=== PATIENT | female | born 1975 | race Caucasian/White ===

== ENCOUNTER 2021-03-21 00:16 | Inpatient (IN) | payer OTHER ==
[~2021-03-21] VITALS: Ht 162.6 cm; Wt 66.3 kg
[2021-03-21] VITALS (10 sets, daily range): BP systolic 116–160; BP diastolic 70–82
[2021-03-21] MEDS ORDERED: FAMOTIDINE INJ 20MG/2ML VIAL (S0028 PER 1) IVP ONE (00:35)
[2021-03-21] MEDS ORDERED: ONDANSETRON 4MG/2ML VIAL IV ONE (00:35)
[2021-03-21] MEDS ORDERED: MORPHINE 4 MG/ML 1ML VIAL/SYRINGE (J2270) IV ONE ×2 (00:40→05:05)
[2021-03-21] MEDS ORDERED: LR 1,000 ML IV ONE ×2 (00:40→03:30)
[2021-03-21 00:56] LABS: BASO # 0.1 10^3/uL (0.0-0.2); BASO % 0.3 % (0.0-1.0); EOS # 0.1 10^3/uL (0.0-0.5); EOS % 0.4 % (0.0-3.0); HEMATOCRIT 46.7 % (36.0-47.0); HEMOGLOBIN 14.8 g/dl (12.0-15.5); LYMPH # 1.8 10^3/uL (1.5-5.0); LYMPH % 6.4 % (24.0-44.0); MEAN CORPUSCULAR HEMOGLOBIN 29.1 pg (27.0-33.0); MEAN CORPUSCULAR HGB CONC 31.7 g/dl (32.0-36.5); MEAN CORPUSCULAR VOLUME 91.9 fl (80.0-96.0); MONO # 0.9 10^3/uL (0.0-0.8); MONO % 3.4 % (2.0-8.0); NEUTROPHILS # 24.2 10^3/uL (1.5-8.5); NEUTROPHILS % 88.9 % (36.0-66.0); PLATELET COUNT, AUTOMATED 464 10^3/uL (150-450); RED BLOOD COUNT 5.08 10^6/uL (4.00-5.40); WHITE BLOOD COUNT 27.2 10^3/uL (4.0-10.0)
[2021-03-21] MEDS: GASTROGRAFIN SOLUTION 30ML PO SCH ×2 (01:24→01:45)
[2021-03-21 01:25] LABS: ALBUMIN 3.2 GM/DL (3.2-5.2); ALT/SGPT 15 U/L (12-78); BILIRUBIN,DIRECT < 0.1 MG/DL (0.0-0.2); BILIRUBIN,TOTAL 0.2 MG/DL (0.2-1.0); BLOOD UREA NITROGEN 12 MG/DL (7-18); CALCIUM LEVEL 9.3 MG/DL (8.5-10.1); CARBON DIOXIDE LEVEL 25 MEQ/L (21-32); CHLORIDE LEVEL 106 MEQ/L (98-107); CREATININE FOR GFR 0.65 MG/DL (0.55-1.30); GLOMERULAR FILTRATION RATE > 60.0 (>58); GLUCOSE, FASTING 129 MG/DL (70-100); LIPASE 195 U/L (73-393); SODIUM LEVEL 138 MEQ/L (136-145); TOTAL PROTEIN 6.5 GM/DL (6.4-8.2)
[2021-03-21] MEDS ORDERED: ISOVUE-370 76% 100ML VIAL As Ordered ONE (02:25)
--- NOTE | 2021-03-21 02:32 | REPVR ---
PROCEDURE INFORMATION: Exam: XR Abdomen Exam date and time: 03/21/2021 1:41 AM Age: 45 years old Clinical indication: Other: Examine gas pattern TECHNIQUE: Imaging protocol: XR of the abdomen. Views: Frontal supine view of the abdomen. 1 View. COMPARISON: No relevant prior studies available. FINDINGS: Gastrointestinal tract: Nonspecific nonobstructive bowel gas pattern. Intraperitoneal space: Surgical clips project in paraspinal right upper quadrant. Bones/joints: Degenerative changes in the bilateral sacroiliac joints. IMPRESSION: Nonspecific nonobstructive bowel gas pattern. Electronically signed by: Jose Rafael Jimenez On 03/21/2021 02:32:21 AM
[2021-03-21] MEDS ORDERED: VANCOMYCIN HCL 1,000 MG, VIAL MATE ADAPTER 1 EACH in NS 250 ML IV SCH (03:25)
[2021-03-21] MEDS ORDERED: PIPERACILLIN/TAZOBACTAM SOD 4.5 GM in D5W MINI-BAG PLUS 50 ML IV ONE (03:25)
--- NOTE | 2021-03-21 03:30 | REPVR ---
PROCEDURE INFORMATION: Exam: CT Abdomen And Pelvis With Contrast Exam date and time: 03/21/2021 2:50 AM Age: 45 years old Clinical indication: Abdominal pain; Localized; Right lower quadrant (rlq); Additional info: R/O obstruction/rlq pain vomting TECHNIQUE: Imaging protocol: Computed tomography of the abdomen and pelvis with contrast. Radiation optimization: All CT scans at this facility use at least one of these dose optimization techniques: automated exposure control; mA and/or kV adjustment per patient size (includes targeted exams where dose is matched to clinical indication); or iterative reconstruction. Contrast material: ISOVUE 370; Contrast volume: 100 ml; Contrast route: INTRAVENOUS (IV); COMPARISON: CR Abdomen,Flat Plate KUB 03/21/2021 1:24 AM FINDINGS: Lungs: Atelectasis or scarring in the right middle lobe. Linear atelectasis or scarring in the right middle lobe. Liver: Hepatomegaly and steatosis. Gallbladder and bile ducts: Status post cholecystectomy. Pancreas: Normal. No ductal dilation. Spleen: Normal. No splenomegaly. Adrenal glands: Indeterminate 3 x 2 cm left adrenal nodule. Kidneys and ureters: Normal. No hydronephrosis. Stomach and bowel: Status post partial small bowel resection. Perforated duodenal ulcer with sang pneumoperitoneum and oral contrast leak best appreciated on coronal image number 81. Appendix: Status post appendectomy. Intraperitoneal space: See above. Vasculature: Unremarkable. No abdominal aortic aneurysm. Lymph nodes: Unremarkable. No enlarged lymph nodes. Urinary bladder: Unremarkable as visualized. Reproductive: Status post hysterectomy. Status post right oophorectomy. Multiple simple appearing left adnexal cysts can be further assessed pelvic ultrasound clinically warranted. Bones/joints: Loss normal lumbar lordosis. Soft tissues: Unremarkable. IMPRESSION: Perforated duodenal ulcer with sang pneumoperitoneum and oral contrast leak best appreciated on coronal image number 81. Electronically signed by: Jose Rafael Jimenez On 03/21/2021 03:30:28 AM
[2021-03-21] MEDS ORDERED: VANCOMYCIN HCL 1,000 MG, VIAL MATE ADAPTER 1 EACH in NS 250 ML IV ONE (03:40)
[2021-03-21] MEDS ORDERED: fentaNYL 100 MCG/2 ML INJECTION (J3010) IV ONE (03:50)
[2021-03-21] MEDS ORDERED: MORPHINE 2 MG/ML 1ML VIAL (J2270) IV ONE (05:05)
[2021-03-21] MEDS ORDERED: propofoL 200 MG/20 ML VIAL As Ordered ONE (05:20)
[2021-03-21] MEDS ORDERED: LIDOCAINE 2% 100MG/5ML SDV (FOR ANES.) As Ordered ONE (05:20)
[2021-03-21] MEDS ORDERED: ROCURONIUM BROMIDE 50 MG/5 ML VIAL As Ordered ONE (05:20)
[2021-03-21] MEDS ORDERED: fentaNYL 250 MCG/5 ML INJECTION (J3010) As Ordered ONE (05:20)
[2021-03-21] MEDS ORDERED: MIDAZOLAM INJ 2MG/2ML VIAL (J2250 PER 1MG) As Ordered ONE (05:21)
[2021-03-21] MEDS ORDERED: NORE5TAB PO (05:23)
[2021-03-21] MEDS ORDERED: BLOOD PRESSURE MED (05:27)
[2021-03-21] MEDS ORDERED: SUCCINYLCHOLINE 100 MG/5 ML SYRINGE (J0330) As Ordered ONE (05:47)
[2021-03-21] MEDS ORDERED: BUPIVACAINE HCL 0.25% 10ML VIAL As Ordered ONE (06:05)
[2021-03-21] MEDS ORDERED: BUPIVACAINE LIPOSOME/PF 1.3% 20ML VIAL (13.3MG/ML)(EXPAREL)(C9290 PER1MG) As Ordered ONE (06:06)
[2021-03-21] MEDS ORDERED: GLUCAGON INJ 1MG VIAL As Ordered ONE (06:06)
[2021-03-21] MEDS ORDERED: PHENYLephrine 500MCG 5ML (100MCG/ML) SYRINGE As Ordered ONE (06:19)
[2021-03-21] MEDS ORDERED: ACETAMINOPHEN 1000MG 100ML IV BTL (OFIRMEV) (J0131 PER 10MG) As Ordered ONE (06:19)
[2021-03-21] MEDS ORDERED: HYDROmorphone HCL 2 MG/ML 1ML VIAL (J1170) As Ordered ONE (06:24)
[2021-03-21] MEDS ORDERED: SUGAMMADEX SODIUM 500 MG/5 ML VIAL (BRIDION) As Ordered ONE (06:26)
[2021-03-21] MEDS ORDERED: ONDANSETRON 4MG/2ML VIAL IV PRN ×2 (06:45→07:00)
[2021-03-21] MEDS ORDERED: MORPHINE 4 MG/ML 1ML VIAL/SYRINGE (J2270) IV PRN (06:45)
[2021-03-21] MEDS ORDERED: fentaNYL 100 MCG/2 ML INJECTION (J3010) IV PRN (07:00)
[2021-03-21] MEDS ORDERED: HYDROMORPHONE HCL 0.5 MG/ 0.5 ML SYRINGE (J1170 PER 1) IV PRN (07:00)
[2021-03-21] MEDS ORDERED: oxyCODONE 5MG TAB PO PRN (07:00)
[2021-03-21] MEDS ORDERED: LR 1,000 ML IV SCH (07:00)
[2021-03-21] MEDS ORDERED: LEVALBUTEROL 1.25 MG/0.5 ML CONCENTRATE NEB As Ordered ONE (08:17)
[2021-03-21] MEDS ORDERED: LEVALBUTEROL 1.25 MG/0.5 ML CONCENTRATE NEB NEB ONE (08:20)
[2021-03-21] MEDS: NS 1,000 ML IV SCH ×3 (09:58→22:46)
[2021-03-21] MEDS: KETOROLAC 30 MG/ML 1ML VIAL IV SCH ×3 (09:58→20:39)
[2021-03-21] MEDS: PANTOPRAZOLE 40MG VIAL (C9113 PER 1) IV SCH ×2 (09:58→20:39)
[2021-03-21] MEDS: AMPICILLIN SOD/SULBACTAM SOD 3 GM in D5W MINI-BAG PLUS 100 ML IV SCH ×3 (12:11→22:45)
[2021-03-21] MEDS: MORPHINE 4 MG/ML 1ML VIAL/SYRINGE (J2270) IV PRN ×2 (12:55→18:13)
[2021-03-21] MEDS ORDERED: IPRATROPIUM 0.5MG/ALBUTEROL 2.5MG INH SOL UD 3ML (DUONEB) NEB PRN (15:10)
[2021-03-21] MEDS: IPRATROPIUM 0.5MG/ALBUTEROL 2.5MG INH SOL UD 3ML (DUONEB) NEB SCH (18:16)
[2021-03-22] MEDS: KETOROLAC 30 MG/ML 1ML VIAL IV SCH ×4 (01:30→20:30)
[2021-03-22] MEDS: IPRATROPIUM 0.5MG/ALBUTEROL 2.5MG INH SOL UD 3ML (DUONEB) NEB SCH ×4 (01:36→19:36)
[2021-03-22 02:00] VITALS: BP 136/80
[2021-03-22] MEDS: AMPICILLIN SOD/SULBACTAM SOD 3 GM in D5W MINI-BAG PLUS 100 ML IV SCH ×4 (04:09→23:21)
[2021-03-22] MEDS: MORPHINE 4 MG/ML 1ML VIAL/SYRINGE (J2270) IV PRN ×3 (04:16→18:07)
[2021-03-22 06:00] VITALS: BP 136/81
[2021-03-22] MEDS: NS 1,000 ML IV SCH ×3 (06:39→23:21)
[2021-03-22] MEDS: PANTOPRAZOLE 40MG VIAL (C9113 PER 1) IV SCH ×2 (08:29→20:30)
--- NOTE | 2021-03-22 11:10 | IPNPDOC ---
Text Note Date of Service The patient was seen on 03/22/21. NOTE Gen. surgery. Dr. Forte The patient is a 45-year-old female status post laparotomy with repair of perforated small bowel ulcer as per Dr. Forte 03/21/21. This morning, the patient is out of bed and sitting in the chair. She reports pain is controlled. She has some mild incisional pain. She states her low back is bothering her from lying in the bed flat for so long, she would like to apply some heat. Otherwise, she reports no nausea, vomiting. Reports flatus, no BM. NPO. Afebrile. Blood pressure 136/81, heart rate 111, respiratory rate 16, 93% 1 L nasal cannula. General. Out of bed to chair, appears comfortable. Lungs clear to auscultation S1-S2 regular rate and rhythm Abdomen with midline dressing clean/dry/intact. Soft, mild tenderness around incision site. No guarding or rebound. Extremities with no edema. No new labs this morning. Assessment/plan Status post laparotomy with repair of perforated small bowel ulcer as per Dr. Forte 03/21/21. Continue NPO IVF 125cc/hr IV Unasyn. Plan for labs in AM. VS,Fishbone, I+O VS, Fishbone, I+O Vital Signs Date Time Temp Pulse Resp B/P (MAP) Pulse Ox O2 Delivery O2 Flow Rate FiO2 03/22/21 06:00 98.7 111 16 136/81 (99) 93 Nasal Cannula 1.0 I&O- Last 24 Hours up to 6 AM 03/22/21 05:59 Intake Total 1700 ml Output Total 1300 ml Balance 400 ml Liz Roman March 22, 2021 11:09
[2021-03-22 14:00] VITALS: BP 150/88
[2021-03-22 22:00] VITALS: BP 152/79
[2021-03-23] MEDS ORDERED: diphenhydrAMINE 25MG CAP PO PRN (00:10)
[2021-03-23 02:00] VITALS: BP 146/60
[2021-03-23] MEDS: KETOROLAC 30 MG/ML 1ML VIAL IV SCH ×4 (02:03→19:58)
[2021-03-23] MEDS: IPRATROPIUM 0.5MG/ALBUTEROL 2.5MG INH SOL UD 3ML (DUONEB) NEB SCH ×4 (02:31→19:12)
[2021-03-23 04:00] VITALS: BP 146/60
[2021-03-23] MEDS: AMPICILLIN SOD/SULBACTAM SOD 3 GM in D5W MINI-BAG PLUS 100 ML IV SCH ×4 (04:12→22:59)
[2021-03-23 06:00] VITALS: BP 166/81
[2021-03-23 06:04] LABS: HEMATOCRIT 34.7 % (36.0-47.0); HEMOGLOBIN 10.9 g/dl (12.0-15.5); MEAN CORPUSCULAR HEMOGLOBIN 28.8 pg (27.0-33.0); MEAN CORPUSCULAR HGB CONC 31.4 g/dl (32.0-36.5); MEAN CORPUSCULAR VOLUME 91.6 fl (80.0-96.0); PLATELET COUNT, AUTOMATED 256 10^3/uL (150-450); RED BLOOD COUNT 3.79 10^6/uL (4.00-5.40); WHITE BLOOD COUNT 9.1 10^3/uL (4.0-10.0)
[2021-03-23 06:32] LABS: BLOOD UREA NITROGEN 3 MG/DL (7-18); CALCIUM LEVEL 7.6 MG/DL (8.5-10.1); CARBON DIOXIDE LEVEL 22 MEQ/L (21-32); CHLORIDE LEVEL 111 MEQ/L (98-107); CREATININE FOR GFR 0.26 MG/DL (0.55-1.30); GLOMERULAR FILTRATION RATE > 60.0 (>58); GLUCOSE, FASTING 85 MG/DL (70-100); POTASSIUM SERUM 3.4 MEQ/L (3.5-5.1); SODIUM LEVEL 141 MEQ/L (136-145)
[2021-03-23] MEDS: PANTOPRAZOLE 40MG VIAL (C9113 PER 1) IV SCH ×2 (09:05→20:00)
[2021-03-23 10:00] VITALS: BP 156/82
[2021-03-23] MEDS: NS 1,000 ML IV SCH (10:01)
[2021-03-23 14:00] VITALS: BP 158/86
[2021-03-23] MEDS ORDERED: NORCO, ANEXSIA 5/325MG TABLET (HYDROcodone/ACETAMINOPHEN) PO PRN (14:25)
[2021-03-23] MEDS ORDERED: LOSARTAN 25 MG TAB PO ONE (14:45)
--- NOTE | 2021-03-23 21:26 | IPN ---
PROGRESS NOTE DATE: 03/23/2021 SUBJECTIVE: Patient is status post perforated small bowel. She seems to be doing well at this point with some significant improvement of her overall status. Her vital signs have been stable. Her blood pressure is starting to draft roller picker a little bit. She has had multiple bowel movements and does not complain of any significant abdominal pain, minimally around the incision itself. Her white count dropped from 27,000 down to 9,000. PHYSICAL EXAMINATION: LUNGS: Clear anteriorly. HEART: Regular. ABDOMEN: Softly distended, but much less than yesterday and overall her incisions are clean and dry. IMPRESSION/PLAN: Patient seems to be making some good progress at this time, status post small bowel perforation with oversewing of the ulcer. At this point, she is making some good progress. Will stay with the clear liquids today and then probably progress her to a regular diet tomorrow depending on how she is doing. Will stop her I.V. fluids and restart her blood pressure medications.
[2021-03-23 22:00] VITALS: BP 144/84
[2021-03-24] MEDS: IPRATROPIUM 0.5MG/ALBUTEROL 2.5MG INH SOL UD 3ML (DUONEB) NEB SCH ×3 (01:09→13:19)
[2021-03-24 02:00] VITALS: BP 149/70
[2021-03-24] MEDS: KETOROLAC 30 MG/ML 1ML VIAL IV SCH ×2 (02:12→10:05)
[2021-03-24 02:28] VITALS: O2SAT 94
[2021-03-24] MEDS: AMPICILLIN SOD/SULBACTAM SOD 3 GM in D5W MINI-BAG PLUS 100 ML IV SCH ×2 (05:06→10:05)
[2021-03-24 06:00] VITALS: BP 152/76
[2021-03-24 06:26] LABS: HEMATOCRIT 35.5 % (36.0-47.0); HEMOGLOBIN 11.3 g/dl (12.0-15.5); MEAN CORPUSCULAR HEMOGLOBIN 28.9 pg (27.0-33.0); MEAN CORPUSCULAR HGB CONC 31.8 g/dl (32.0-36.5); MEAN CORPUSCULAR VOLUME 90.8 fl (80.0-96.0); PLATELET COUNT, AUTOMATED 296 10^3/uL (150-450); RED BLOOD COUNT 3.91 10^6/uL (4.00-5.40); WHITE BLOOD COUNT 7.9 10^3/uL (4.0-10.0)
[2021-03-24 06:51] LABS: BLOOD UREA NITROGEN 1 MG/DL (7-18); CALCIUM LEVEL 7.7 MG/DL (8.5-10.1); CARBON DIOXIDE LEVEL 24 MEQ/L (21-32); CHLORIDE LEVEL 108 MEQ/L (98-107); CREATININE FOR GFR 0.37 MG/DL (0.55-1.30); GLOMERULAR FILTRATION RATE > 60.0 (>58); GLUCOSE, FASTING 117 MG/DL (70-100); POTASSIUM SERUM 3.2 MEQ/L (3.5-5.1); SODIUM LEVEL 141 MEQ/L (136-145)
--- NOTE | 2021-03-24 08:48 | IPNPDOC ---
Text Note Date of Service The patient was seen on 03/24/21. NOTE Gen. surgery. Dr. Forte The patient is a 45-year-old female status post laparotomy with repair of perforated small bowel ulcer as per Dr. Forte 03/21/21. This morning, the patient is out of bed and sitting in the chair. She reports pain is controlled. Has been ambulating. Denies pain. Denies nausea, vomiting and tolerating clears. Reports flatus, and BM. Afebrile. VSS General. Out of bed to chair, appears comfortable. Lungs clear to auscultation S1-S2 regular rate and rhythm Abdomen with midline incision clean/dry/intact. Soft, no tenderness. No guarding or rebound. Extremities with no edema. WBC 7.9, Hgb 11.3. Assessment/plan Status post laparotomy with repair of perforated small bowel ulcer as per Dr. Forte 03/21/21. Advancing to reg diet this AM. IV Unasyn. Continue OOB and ambulation VS,Fishbone, I+O VS, Fishbone, I+O Laboratory Tests 03/24/21 06:00 Vital Signs Date Time Temp Pulse Resp B/P (MAP) Pulse Ox O2 Delivery O2 Flow Rate FiO2 03/24/21 06:00 97.7 71 18 152/76 (101) 94 Room Air 03/22/21 08:30 1.0 I&O- Last 24 Hours up to 6 AM 03/24/21 06:00 Intake Total 2004 ml Output Total 0 ml Balance 2005 ml Liz Roman March 24, 2021 08:48
[2021-03-24] MEDS ORDERED: LOSARTAN 25 MG TAB PO SCH (09:00)
[2021-03-24] MEDS: PANTOPRAZOLE 40MG VIAL (C9113 PER 1) IV SCH (10:04)
[2021-03-24 10:05] VITALS: BP 145/72
[2021-03-24] MEDS ORDERED: PANT40TA29 PO (15:16)
[2021-03-24] MEDS ORDERED: HYDR-3715 PO (15:16)
--- NOTE | 2021-04-14 09:16 | DSES ---
DISCHARGE SUMMARY DATE OF ADMISSION: 03/21/2021 DATE OF DISCHARGE: 03/24/2021 PRINCIPAL DIAGNOSIS: Small bowel perforation. ASSOCIATED DIAGNOSES: History of previous ulcer disease, history of left knee surgery, history of hysterectomy, history of asthma. MEDICATIONS: Include a blood pressure medication as well as estrogen replacement therapy. PROCEDURES PERFORMED: Exploratory laparotomy with repair of small bowel perforation/ulcer. BRIEF HISTORY OF PRESENT ILLNESS: Patient is a 45-year-old female who has had a history of a previous ulcer in the past with an unknown type of surgery she reports, in any case, presents for free air and peritoneal signs on physical exam consistent with a bowel perforation. HOSPITAL COURSE SUMMARY: The patient was admitted with the above diagnosis, was taken to the Operating Room where she underwent exploratory laparotomy. She had a very distended small bowel on her CAT scan and there is some question whether she had a proximal perforation or some abnormality associated with this distal small bowel. In any case, an exploratory laparotomy was performed and the small bowel was run and did reveal some chronically dilated distal small bowel, but more proximal small bowel was inflamed from the recent perforation, but no evidence of Crohn's disease, ulcerative colitis and no evidence of ongoing issues except a punched out small ulcer in the proximal small bowel was seen and was able to be closed primarily with some interpreted sutures. The abdomen was copiously irrigated and the abdomen closed. Postoperatively, she did quite well. Every day she continued to make some slow but progressive improvements. Eventually she was discharged home on a regular diet on 03/24/2021, tolerating a regular diet, had good pain control with p.o. pain meds and was instructed to follow-up in two weeks at my office, sooner if there are any questions or concerns, fevers or chills. She was to continue on Protonix as well given that this was most likely ulcer related given her previous history of peptic ulcer disease.
--- NOTE | 2021-04-14 10:39 | RO ---
OPERATIVE NOTE DATE OF OPERATION: 03/21/2021 PREOPERATIVE DIAGNOSIS: Perforated viscus/bowel. POSTOPERATIVE DIAGNOSIS: Perforated small bowel. PROCEDURE: Exploratory laparotomy with repair of perforated ulcer/small bowel. SURGEON: Usman Forte Jr., M.D. INVENTORY CONTROL ASSISTANT: None. ANESTHESIA: General endotracheal anesthesia. ESTIMATED BLOOD LOSS: Minimal. FLUIDS: Crystalloid. BRIEF PROCEDURE SUMMARY: The patient was brought to the operating room and was given general anesthesia. After adequate anesthesia and preoperative antibiotics were given, the patient was prepped and draped in the usual sterile fashion. Next, a supraumbilical incision was made with a skin knife. Electrocautery was used to cut through dermis and underlying subcutaneous tissue. The incision was extended to allow for mobilization of the small bowel. There was some fecalization of the distal small bowel, but no evidence of perforation was noted in this area, although this was where she had some preoperative right lower quadrant pain more so than the epigastric. In any case, the bowel was followed back up to the proximal abdomen and in the proximal abdomen and the proximal small bowel, there was a punched out small ulcer that was well-circumscribed and did not reveal any significant abnormalities around it. More importantly, this was able to be closed with two 3-0 Vicryl and then imbricated with some silks over the top of this. This came together quite nicely and the defect was closed nicely. I did not feel that this area needed to be resected. The abdomen was copiously irrigated until clear and looped 0-PDS was used to close the fascia in a running manner. Yale were used to approximate the skin. Dry sterile dressing was applied. The patient was awakened from her anesthesia and brought to the recovery room awake, alert, and hemodynamically stable. Sponge and needle counts correct x2.
== END 2021-03-24 15:44 | disposition home or self-care (01) | DRG 331 ==
LOC: M ED 00:16 → M ED INP 05:00 → M MSPAV 08:04
PROVIDERS: ADMIT Surgery; ATTEND Surgery
PROC: 0DQ80ZZ Repair Small Intestine, Open Approach (ICD-10-PCS; principal; 2021-03-21 05:30)
DX: K26.1 Acute duodenal ulcer with perforation (principal); J45.909 Unspecified asthma, uncomplicated